=== PATIENT | female | born 1975 | race African-American/Black ===

== ENCOUNTER → 2017-02-03 | Outpatient (CLI) | payer OTHER ==
--- NOTE | 2017-02-05 08:53 | RAD ---
DATE: 02/03/2017 EXAM: DIGITAL SCREEN BILAT W/CAD HISTORY: Routine screening COMPARISON: 09/29/2015 This study was interpreted with the benefit of Computerized Aided Detection (CAD). FINDINGS: There are scattered fibroglandular densities in the breasts. No new or enlarging breast densities are seen. A coarse benign type calcification is present in the right. No suspicious microcalcifications are evident. Benign-appearing lymph node type densities are present in the axillary regions. IMPRESSION: Stable mammograms without evidence of malignancy. BI-RADS CATEGORY: 2 BENIGN FINDING(S) RECOMMENDED FOLLOW-UP: 12M 12 MONTH FOLLOW-UP PQRS compliance statement: Patient information was entered into a reminder system with a target due date for the next mammogram. Mammography is a sensitive method for finding small breast cancers, but it does not detect them all and is not a substitute for careful clinical examination. A negative mammogram does not negate a clinically suspicious finding and should not result in delay in biopsying a clinically suspicious abnormality. "Our facility is accredited by the [employer] Mammography [employer]."
== END | disposition home or self-care (01) ==
LOC: MAMMO 08:32
PROVIDERS: ATTEND Family Medicine
DX: Z12.31 Encounter for screening mammogram for malignant neoplasm of breast (principal)
CPT/HCPCS: G0202; 77067

== ENCOUNTER → 2017-09-24 | Outpatient (CLI) | payer OTHER | END | disposition home or self-care (01) | LOC: SPEC 13:50 | DX: Z01.419 Encounter for gynecological examination (general) (routine) without abnormal findings (principal) | CPT/HCPCS: 87623; 88175 ==

== ENCOUNTER → 2017-11-06 | Outpatient (CLI) | payer OTHER ==
--- NOTE | 2017-11-06 10:53 | KCIC ---
PA and lateral chest radiograph. History: Productive cough for one week, left mid back pain. R05. Comparison: None. Findings: Cardiomediastinal silhouette is within normal limits for size. Bilateral lung cherry appear clear without evidence of infiltrate, effusion, or pneumothorax. Impression: 1. No acute cardiopulmonary process. Electronically signed by: Hermilo Inman MD (11/06/2017 10:50 AM) [place] [id number]
== END | disposition home or self-care (01) ==
LOC: KCIC 09:24
PROVIDERS: ATTEND Family Medicine
DX: M54.6 Pain in thoracic spine (principal); R05 Cough
CPT/HCPCS: 71020

== ENCOUNTER 2018-01-22 13:31 | Emergency (ER) | payer OTHER ==
[2018-01-22 14:10] LABS: ADD MAN DIFF? NO
[2018-01-22 14:14] LABS: URINE HCG POC HCG NEGATIVE (Negative)
[2018-01-22 14:14] LABS: BASO # 0.1 x10^3/uL (0.0-0.2); BASO % 1 % (0-3); EOS # 0.1 x10^3/uL (0.0-0.7); EOS % 1 % (0-3); HEMATOCRIT 40.7 % (36.0-47.0); HEMOGLOBIN 13.3 g/dL (12.0-15.5); LYMPH # 1.8 x10^3/uL (1.0-4.8); LYMPH % 20 % (24-48); MEAN CORPUSCULAR HEMOGLOBIN 28 pg (25-35); MEAN CORPUSCULAR HGB CONC 33 g/dL (31-37); MEAN CORPUSCULAR VOLUME 85 fL (79-100); MONO # 0.3 x10^3/uL (0.0-1.1); MONO % 3 % (0-9); NEUT # 6.8 x10^3uL (1.8-7.7); NEUT % 75 % (31-73); PLATELET COUNT 290 x10^3/uL (140-400); RED BLOOD COUNT 4.76 x10^6/uL (3.50-5.40); RED CELL DISTRIBUTION WIDTH 13.5 % (11.5-14.5); WHITE BLOOD COUNT 9.1 x10^3/uL (4.0-11.0)
[2018-01-22 14:25] LABS: ANION GAP 9 (6-14); BLOOD UREA NITROGEN 9 mg/dL (7-20); BUN/CREATININE RATIO 10 (6-20); CALCIUM 8.9 mg/dL (8.5-10.1); CARBON DIOXIDE 27 mmol/L (21-32); CHLORIDE 102 mmol/L (98-107); CREATININE 0.9 mg/dL (0.6-1.0); GFR 82.3; GLUCOSE 151 mg/dL (70-99); POTASSIUM 3.6 mmol/L (3.5-5.1); SODIUM 138 mmol/L (136-145)
[2018-01-22 14:31] LABS: ALBUMIN 3.4 g/dL (3.4-5.0); ALBUMIN/GLOBULIN RATIO 0.8 (1.0-1.7); ALK PHOS 86 U/L (46-116); ALT (SGPT) 15 U/L (14-59); AST (SGOT) 17 U/L (15-37); TOTAL BILIRUBIN 0.6 mg/dL (0.2-1.0); TOTAL PROTEIN 7.8 g/dL (6.4-8.2)
[2018-01-22 14:31] LABS: TROPONINI < 0.017 ng/mL (0.000-0.055)
[2018-01-22] MEDS: IOHEXOL 300 MG/ML 100ML VIAL. IV (15:11)
[2018-01-22] MEDS ORDERED: CONTRAST GIVEN MC (15:15)
== END 2018-01-22 16:45 | disposition home or self-care (01) ==
LOC: ER 13:31
DX: R07.89 Other chest pain (principal); M54.12 Radiculopathy, cervical region
CPT/HCPCS: 36415; 71045; 71275; 72040; 80053; 81025; 84484; 85025; 93005; 99285-25; Q9967

== ENCOUNTER → 2018-02-02 | Outpatient (CLI) | payer OTHER | END | disposition home or self-care (01) | LOC: MAMMO 08:11 | DX: Z12.31 Encounter for screening mammogram for malignant neoplasm of breast (principal) | CPT/HCPCS: 77063; 77067 ==

== ENCOUNTER → 2019-06-26 | Outpatient (CLI) | payer OTHER ==
[2018-01-22 16:44] VITALS: BP 138/74
--- NOTE | 2019-06-26 16:58 | KCIC ---
Bilateral digital screening mammograms with 3-D tomosynthesis: Reason for examination: Routine screening. Comparison is made to previous studies dated 02/02/2018 and 02/03/2017. Bilateral mammograms in CC and oblique projections were obtained with 2-D imaging and 3-D tomosynthesis imaging on a Siemens Inspiration unit and reviewed on the workstation. Interpretation was made with the benefit of CAD. The skin and nipples show no abnormalities. No abnormal axillary lymph nodes are seen. The breast parenchyma shows scattered fatty and fibroglandular density. (Breast density: Category B.) There continues to be a small nodular density anteriorly at the 3:00 position of the left breast which is stable. There also appears to be subtle nodular density in the 7:00 B position of the right breast which is stable. There are no new dominant masses, suspicious calcifications or architectural distortion. Impression: No evidence of malignancy. Recommend routine screening. BI-RAD Category 2: Benign. "Our facility is accredited by the [employer] Mammography [employer]." This patient's information has been entered into a reminder system for the patient to be notified with the results of her examination and a target date for the next mammogram. Electronically signed by: Natalie Wang MD (06/26/2019 4:55 PM) [facility]
== END | disposition home or self-care (01) ==
LOC: KCIC MAMMO 10:48
PROVIDERS: ATTEND Family Medicine
DX: Z12.31 Encounter for screening mammogram for malignant neoplasm of breast (principal)
CPT/HCPCS: 77063; 77067

== ENCOUNTER → 2019-07-15 | Outpatient (CLI) | payer OTHER ==
[2018-01-22 16:44] VITALS: BP 138/74
--- NOTE | 2019-07-15 16:28 | KCIC ---
FOOT LEFT 3V 07/15/2019 12:00 AM INDICATION: Left foot pain COMPARISON: None available. TECHNIQUE: 3 views the left foot are provided. FINDINGS: There is no acute fracture or dislocation. Bone mineralization is within normal limits. Joint spaces are maintained. Regional soft tissues are within normal limits. There is no soft tissue gas or osseous erosion. Sesamoid bones are identified at the heads of each metatarsal with a bipartite medial sesamoid at the head of the fifth metatarsal. IMPRESSION: No acute fracture or dislocation. Electronically signed by: Lakeshia Sandy MD (07/15/2019 4:25 PM) [facility]
== END | disposition home or self-care (01) ==
LOC: KCIC 12:21
PROVIDERS: ATTEND Family Medicine
DX: M79.672 Pain in left foot (principal)
CPT/HCPCS: 73630

== ENCOUNTER → 2020-12-08 | Outpatient (CLI) | payer OTHER, BC ==
[2018-01-22 16:44] VITALS: BP 138/74
[2020-12-08 09:04] LABS: ALBUMIN 3.9 g/dL (3.4-5.0); TOTAL PROTEIN 7.9 g/dL (6.4-8.2)
[2020-12-08 09:05] LABS: CALCIUM 8.8 mg/dL (8.5-10.1); CREATININE 0.9 mg/dL (0.6-1.0); GFR 81.2; TOTAL BILIRUBIN 0.5 mg/dL (0.2-1.0)
[2020-12-08 09:06] LABS: CHOLESTEROL/HDL RATIO 2.2
[2020-12-08 09:12] LABS: BASO % 0 % (0-3); EOS # 0.1 x10^3/uL (0.0-0.7); EOS % 1 % (0-3); HEMATOCRIT 41.9 % (36.0-47.0); HEMOGLOBIN 13.9 g/dL (12.0-15.5); LYMPH # 1.7 x10^3/uL (1.0-4.8); LYMPH % 26 % (24-48); MEAN CORPUSCULAR HEMOGLOBIN 29 pg (25-35); MEAN CORPUSCULAR HGB CONC 33 g/dL (31-37); MEAN CORPUSCULAR VOLUME 87 fL (79-100); MONO # 0.4 x10^3/uL (0.0-1.1); MONO % 7 % (0-9); NEUT # 4.2 x10^3/uL (1.8-7.7); NEUT % 65 % (31-73); PLATELET COUNT 258 x10^3/uL (140-400); RED BLOOD COUNT 4.84 x10^6/uL (3.50-5.40); RED CELL DISTRIBUTION WIDTH 13.5 % (11.5-14.5); WHITE BLOOD COUNT 6.4 x10^3/uL (4.0-11.0)
[2020-12-08 21:07] LABS: FSH 22.9 mIU/mL (.); LUTEINIZING HORMONE 8.5 mIU/mL (.)
== END ==
LOC: LAB 07:12
PROVIDERS: ATTEND Family Medicine
DX: Z13.220 Encounter for screening for lipoid disorders (principal); R53.83 Other fatigue; R23.2 Flushing
CPT/HCPCS: 36415; 80053; 80061; 82306; 83001; 83002; 84443; 85025

== ENCOUNTER → 2020-12-08 | Outpatient (CLI) | payer OTHER, BC ==
[2018-01-22 16:44] VITALS: BP 138/74
--- NOTE | 2020-12-08 12:32 | KCIC ---
EXAM: Bilateral digital screening mammogram with tomosynthesis. HISTORY: 45-year-old female presents for screening mammography. TECHNIQUE: Full-field digital craniocaudal and mediolateral oblique 2D and 3D tomosynthesis images of both breasts are obtained for evaluation. Computer aided detection was applied. COMPARISON: 06/26/2019 BREAST PARENCHYMAL DENSITY: Level B - Scattered fibroglandular densities. FINDINGS: There is no new suspicious mass, microcalcification or region of architectural distortion. There is stable asymmetry within the lateral aspect of the left breast at mid depth when allowing for differences in imaging technique. There are stable nodular density within the lateral subareolar asp ect of the left breast. IMPRESSION: BI-RADS Category 2: Benign finding(s). RECOMMENDATION: Annual mammography is recommended. If your mammogram demonstrates that you have dense breast tissue, which could hide abnormalities, and if you have other risk factors for breast cancer that have been identified, you might benefit from s upplemental screening tests that may be suggested by your ordering physician. Dense breast tissue, i n and of itself, is a relatively common condition. This information is not provided to cause undue c oncern, but rather to raise your awareness and to promote discussion with your physician regarding th e presence of other risk factors, in addition to dense breast tissue. A report of your mammography re sults will be sent to you and your physician. You should contact your physician if you have any ques tions or concerns regarding this report. Mammography is a sensitive method for finding small breast cancers, but it does not detect them all a nd is not a substitute for careful clinical examination. A negative mammogram does not negate a clin ically suspicious finding and should not result in delay in biopsying a clinically suspicious abnorma lity. PQRS compliance statement - Patient information was entered into a reminder system with a target due date for the next mammogram. "Our facility is accredited by the [employer] Mammography Program." Electronically signed by: Brianne Cordova MD (12/08/2020 12:29 PM) [facility]
== END ==
LOC: KCIC MAMMO 08:29
PROVIDERS: ATTEND Family Medicine
DX: Z12.31 Encounter for screening mammogram for malignant neoplasm of breast (principal)
CPT/HCPCS: 77063; 77067

== ENCOUNTER 2021-05-17 17:27 | Emergency (ER) | payer OTHER, BC ==
[~2021-05-17] VITALS: Ht 162.6 cm; Wt 82.0 kg
[2021-05-17] MEDS ORDERED: ACETAMINOPHEN 500 MG TABLET PO ONE (18:15)
[2021-05-17] MEDS ORDERED: IBUPROFEN 400 MG TABLET. PO ONE (18:15)
--- NOTE | 2021-05-17 19:11 | RAD ---
EXAMINATION: CT CERVICAL SPINE WO, CT THORACIC SPINE WO CLINICAL HISTORY: Blunt trauma TECHNIQUE: CT of the cervicothoracic spine without IV contrast. Spiral, high resolution axial images were obtained from the skull base to the cervicothoracic junction with sagittal and coronal planar re constructions. CT Dose Reduction Employed: One or more of the following individualized dose reduction techniques wer e utilized for this examination: 1. Automated exposure control 2. Adjustment of the mA and/or kV ac cording to patient size 3. Use of iterative reconstruction technique. COMPARISON: None. FINDINGS: C-SPINE: Alignment: Straightening of the normal cervical lordosis, likely positional. Osseous Structures: No evidence of acute fracture or spondylolisthesis. Degenerative Changes: No significant degenerative changes. Cervical Soft Tissues: No prevertebral soft tissue swelling. T-SPINE: Alignment: Normal anatomic alignment. Osseous Structures: No evidence of acute fracture or spondylolisthesis. Degenerative Changes: No significant degenerative changes. Soft Tissues: Paraspinal soft tissues are within normal limits. IMPRESSION: No evidence of acute osseous abnormality. Electronically signed by: J Luis Woodward DO (05/17/2021 7:09 PM) [facility]
--- NOTE | 2021-05-17 19:15 | PHYS DOC ---
Past Medical History Past Medical History: Hypertension Past Surgical History: Tubal ligation Smoking Status: Never Smoker Alcohol Use: None Drug Use: None General Adult EDM: Chief Complaint: BACK PAIN OR INJURY HPI: HPI: Patient is a 45 year old female who presents to the emergency department with chief complaint of neck and upper back pain after a mirror fell on her neck and upper back at approximately 715 this morning when she was brushing her teeth. Patient states she was bent over when the bathroom mirror fell over and hit her on the back. Patient states she did not lose consciousness, patient states the mirror did not break. Patient states she has experienced some tingling that shoots down her left arm when she moves her head in a certain direction otherwise she has pains radiating a 6 out of 10 of her neck and upper back mostly on the left. Patient denies any recent fever or chills, denies loss of sensation or loss of movement. Patient denies any headaches, dizziness, or visual changes. Patient denies any other physical complaints or physical nancy rns. Patient denies any allergies to medications, states she takes 2.5 mg Bystolic for blood pressure disease. Patient reports her last menstrual cycle was 2 weeks ago however they are usually irregular as she is now premenopausal. Patient sees Dr. Vogel for primary care. Patient denies any other physical complaints or physical concerns. Patient states that she did take 400 mg of Motrin at noon today which helped some. Review of Systems: Review of Systems: 14 body systems of review of systems have been reviewed. See HPI for pertinent positives and negative responses, otherwise all other systems are negative, nonpertinent or noncontributory. Constitutional: Negative except as outlined in HPI above. Skin: Negative except as outlined in HPI above. Eyes: Negative except as outlined in HPI above. HENT: Negative except as outlined in HPI above. Respiratory: Negative except as outlined in HPI above. Cardiovascular: Negative except as outlined in HPI above. GI: Negative except as outlined in HPI above. : Negative except as outlined in HPI above. Musculoskeletal: Negative except as outlined in HPI above. Integument: Negative except as outlined in HPI above. Neurologic: Negative except as outlined in HPI above. Endocrine: Negative except as outlined in HPI above. Lymphatic: Negative except as outlined in HPI above. Psychiatric: Negative except as outlined in HPI above. Heart Score: C/O Chest Pain: No Risk Factors: Risk Factors: DM, Current or recent (<one month) smoker, HTN, HLP, family history of CAD, obesity. Risk Scores: Score 0 - 3: 2.5% MACE over next 6 weeks - Discharge Home Score 4 - 6: 20.3% MACE over next 6 weeks - Admit for Clinical Observation Score 7 - 10: 72.7% MACE over next 6 weeks - Early Invasive Strategies Current Medications: Current Medications Medications (Trade) Dose Ordered Sig/Maryana Start Time Stop Time Status Last Admin Dose Admin Acetaminophen (Tylenol) 1,000 mg 1X ONCE 05/17/21 18:15 05/17/21 18:20 DC 05/17/21 18:59 1,000 MG Ibuprofen (Motrin) 400 mg 1X ONCE 05/17/21 18:15 05/17/21 18:20 DC 05/17/21 18:59 400 MG Allergies: Allergies: Allergies Coded Allergies Type Severity Reaction Last Updated Verified No Known Drug Allergies 01/22/18 No Physical Exam: PE: Constitutional: Well developed, well nourished, no acute distress, non-toxic appearance. 45-year-old female in no apparent distress. HENT: Normocephalic, atraumatic. Eyes: Conjunctiva normal, no discharge. Neck: Normal range of motion, no stridor. No step-offs, no crepitus appreciated, no deformities. No areas of ecchymosis or skin discoloration, no subcu air appreciated, no contusions appreciated. Cardiovascular: No cyanosis appreciated, distal cap refill less than 2 seconds. Lungs & Thorax: Patient is in no respiratory distress, no audible adventitious lung sounds appreciated. Abdomen: Nontender, no abnormalities noted. Skin: Warm, dry, no erythema, no rash. Skin is intact at area of impact from mirror. Back: No tenderness, no deformities. No midline spinal tenderness, however there is tenderness to the left paraspinal musculature area. No deformities appreciated, no areas of ecchymosis, no subcu air appreciated. Extremities: No tenderness, no cyanosis, no clubbing, ROM intact, no edema. No paresthesias appreciated, distal cap refill less than 2 seconds, +2 radial pulses. Neurologic: Alert and oriented X 3, normal motor function, normal sensory function, no focal deficits noted. Psychologic: Affect normal, judgement normal, mood normal. Current Patient Data: Labs: Laboratory Tests Test 05/17/21 17:57 POC Urine HCG, Qualitative Hcg negative (Negative) Vital Signs: Vital Signs Date Time Temp Pulse Resp B/P (MAP) Pulse Ox O2 Delivery O2 Flow Rate FiO2 05/17/21 18:15 98.2 56 16 157/72 (95) 100 Room Air 98.2 EKG: EKG: [] Radiology/Procedures: Radiology/Procedures: PATIENT: ORLA TARANGO RACCOUNT: [id number] : 1975 LOCATION: ER AGE: 45 SEX: F EXAM STATUS: REG ER ORD. PHYSICIAN: JALEN ARGUETA APRN REASON: blunt trauma PROCEDURE: CT THORACIC SPINE WO CONTRAST EXAMINATION: CT CERVICAL SPINE WO, CT THORACIC SPINE WO CLINICAL HISTORY: Blunt trauma TECHNIQUE: CT of the cervicothoracic spine without IV contrast. Spiral, high resolution axial images were obtained from the skull base to the cervicothoracic junction with sagittal and coronal planar reconstructions. CT Dose Reduction Employed: One or more of the following individualized dose reduction techniques were utilized for this examination: 1. Automated exposure control 2. Adjustment of the mA and/or kV according to patient size 3. Use of iterative reconstruction technique. COMPARISON: None. FINDINGS: C-SPINE: Alignment: Straightening of the normal cervical lordosis, likely positional. Osseous Structures: No evidence of acute fracture or spondylolisthesis. Degenerative Changes: No significant degenerative changes. Cervical Soft Tissues: No prevertebral soft tissue swelling. T-SPINE: Alignment: Normal anatomic alignment. Osseous Structures: No evidence of acute fracture or spondylolisthesis. Degenerative Changes: No significant degenerative changes. Soft Tissues: Paraspinal soft tissues are within normal limits. IMPRESSION: No evidence of acute osseous abnormality. Electronically signed by: J Luis Bentley DO (05/17/2021 7:09 PM) [facility] DICTATED and SIGNED BY: J LUIS BENTLEY DO DATE: 05/17/21 [id number] 0 Course & Med Decision Making: Course & Med Decision Making Pertinent Labs and Imaging studies reviewed. (See chart for details) 45-year-old female, vital signs reviewed, presents emergency department concerning upper back and neck pain after a mirror fell on her back approximately 715 this morning. Patient's complaints of pain exceeded patient's physical presentation. This is most likely a contusion injury, however with patient's complaint of paresthesia will order CT C-spine and thoracic spine. Patient will be given 1 g Tylenol and 400 mg Motrin p.o. for pain [address] negative for acute process, will diagnosed with contusion of upper back and neck. Will give 1 dose of Depo-Medrol for intermittent paresthesias, most likely related to blunt trauma from mirror versus upper back. Will prescribe 600 mg Motrin and Flexeril for discharge home. Discussed findings with patient, discussed CT findings with patient, patient gave verbal understanding of discharge home instructions, prescription medication use, follow-up with PCP this week for ongoing pain management and management of symptoms, return to ER precautions and concerns, patient states she is grateful and ready to go home, patient was hemodynamically stable, nontoxic in appearance, in no apparent distress at discharge, patient was discharged home without incident. Jorge Disclaimer: Jorge Disclaimer: This electronic medical record was generated, in whole or in part, using a voice recognition dictation system. Departure Departure Impression: Primary Impression: Contusion of upper back Qualified Codes: S20.222A - Contusion of left back wall of thorax, initial encounter Additional Impression: Neck contusion Qualified Codes: S10.93XA - Contusion of unspecified part of neck, initial encounter Disposition: HOME / SELF CARE / HOMELESS Condition: GOOD Referrals: Diane VOGEL MD (PCP) Patient Instructions: Contusion Additional Instructions: You were seen today in the emergency department after a large mirror fell onto your upper back and neck. Because of the nature of this incident a CT of your cervical spine and thoracic spine was performed. There were no abnormalities or concerning signs of broken bones or injury. I believe the sensations that are shooting down your left arm intermittently are related to the blunt force injury of the heavy mirror which most likely caused a contusion to the area. I have given you Tylenol and Motrin for pain today in the emergency department, you have stated that this is helping with your pain. I have also given you a steroid injection to help with nerve inflammation. Please use ice packs to the sore areas 30 minutes on and 30 minutes off for the next 24 to 72 hours prior to up using any heat applications. Please continue to use [id number] Tylenol and/or Motrin for aches and pains. I am prescribing you 600 mg ibuprofen and 10 mg Flexeril as we discussed you may have increased muscle stiffness tomorrow when you wake up. Please follow-up with your primary care physician for ongoing pain management and evaluation of ongoing symptoms. Please return immediately to the emergency department for worsening symptoms or other concerns. It was a pleasure taking care of you today in the emergency department and I think you for allowing me to participate in your emergency health care needs. EMERGENCY DEPARTMENT GENERAL DISCHARGE INSTRUCTIONS Thank you for coming to [facility] Emergency Department (ED) today and trusting us with you care. We trust that you had a positive experience in our Emergency Department. If you wish to speak to the department management, you may call the Director at [phone]. YOUR FOLLOW UP INSTRUCTIONS ARE FOLLOWS: 1. Do you have a private Doctor? If you do not have a private doctor, please ask for a resource list of physicians or clinics that may be able to assist you with follow up care. 2. The Emergency Physicain has interpreted your x-rays. The X-Ray specialist will also review them. If there is a change in the findings, you will be notified in 48 hours when at all possible. 3. A lab test or culture has been done, your results will be reviewed and you will be notified if you need a change in treatment. ADDITIONAL INSTRUCTIONS AND INFORMATION: 1. Your care today has been supervised by a physician who is specially trained in emergency care. Many problems require more than one evaluation for a complete diagnosis and treatment. We recommend that you schedule your follow up appointment as recommended to ensure complete treatment of you illness or injury. If you are unable to obtain follow up care and continue to have a problem, or if your condition worsens, we recommend that you return to the ED. 2. We are not able to safely determine your condition over the phone nor are we able to give sound medical advice over the phone. For these safety reasons, if you call for medical advice we will ask you to come to the ED for further evaluation. 3. If you have any questions regarding these discharge instructions please call the ED at [phone]. SAFETY INFORMATION: In the interest of safety, wellness, and injury prevention; we encourage you to wear your sealbelt, if you smoke; quite smoking, and we encourage family to use a protective helmet for bicycling and other sporting events that present an increased risk for head injury. IF YOUR SYMPTOMS WORSEN OR NEW SYMPTOMS DEVELOP, OR YOU HAVE CONCERNS ABOUT YOUR CONDITION; OR IF YOUR CONDITION WORSENS WHILE YOU ARE WAITING FOR YOUR FOLLOW UP APPOINTMENT; EITHER CONTACT YOUR PRIMARY CARE DOCTOR, THE PHYSICIAN WHOSE NAME AND NUMBER YOU WERE GIVEN, OR RETURN TO THE ED IMMEDIATELY. Scripts Ibuprofen (IBUPROFEN) 600 Mg Tablet 600 MG PO PRN Q6HRS PRN for INFLAMMATION, #20 TAB 0 Refills Prov: JALEN ARGUETA APRN 05/17/21 Cyclobenzaprine Hcl (CYCLOBENZAPRINE HCL) 10 Mg Tablet 10 MG PO TID, #12 TAB 0 Refills Prov: JALEN ARGUETA APRN 05/17/21 JALEN ARGUETA APRN May 17, 2021 19:15
[2021-05-17] MEDS ORDERED: methylPREDNISolone ACETATE 40 MG/ML VIAL. IM ONE (19:45)
[2021-05-17] MEDS ORDERED: CYCLOBENZAPRINE 10 MG TABLET. PO ONE (19:45)
[2021-05-17] MEDS ORDERED: IBUP-1007 PO (19:48)
[2021-05-17] MEDS ORDERED: CYCL10TA2 PO (19:48)
[2021-05-17 19:59] VITALS: BP 157/73
== END 2021-05-17 19:59 | disposition home or self-care (01) ==
LOC: ER 17:27
DX: S20.222A Contusion of left back wall of thorax, initial encounter (principal); S10.93XA Contusion of unspecified part of neck, initial encounter; I10 Essential (primary) hypertension; Z98.51 Tubal ligation status; W18.39XA Other fall on same level, initial encounter; Y93.89 Activity, other specified; Y92.89 Other specified places as the place of occurrence of the external cause; Y99.8 Other external cause status
CPT/HCPCS: 72125; 72128; 81025; 96372; 99285; J1030

== ENCOUNTER → 2021-11-30 | Outpatient (CLI) | payer OTHER, BC ==
[~2021-11-30] MED LIST: CYCL10TA19 PO; IBUP-1007 PO
== END ==
LOC: LAB 18:32
PROVIDERS: ATTEND Family Medicine
DX: R30.0 Dysuria (principal)
CPT/HCPCS: 87086